=== PATIENT | female | born 1985 | race Hispanic/Latino ===

== ENCOUNTER 2022-02-22 09:49 | Outpatient (CLI) | payer OTHER ==
[2022-02-22 21:17] LABS: SARS-CoV-2 PCR by NAA Not Detected (NotDetected)
== END 2022-02-22 09:50 | disposition home or self-care (01) ==
LOC: CSHLAB 09:49
PROVIDERS: ATTEND Obstetrics & Gynecology
DX: Z20.822 Contact with and (suspected) exposure to COVID-19 (principal)
CPT/HCPCS: U0003; U0005

== ENCOUNTER 2022-02-25 13:07 | Day surgery (SDC) | payer OTHER ==
[2022-02-25] MEDS ORDERED: Acetaminophen 500 MG TAB PO SCH (13:45)
[2022-02-25 13:48] VITALS: BMI 21.6
[2022-02-25] MEDS ORDERED: Iron Sucrose Complex 500 MG in Sodium Chloride 0.9% 250 ML 250 ML IVPB SCH (14:15)
== END 2022-02-25 19:40 | disposition home or self-care (01) ==
LOC: CSHLD/OP 13:07
PROVIDERS: ATTEND Obstetrics & Gynecology
DX: O99.012 Anemia complicating pregnancy, second trimester (principal); D50.9 Iron deficiency anemia, unspecified; O09.522 Supervision of elderly multigravida, second trimester; O09.32 Supervision of pregnancy with insufficient antenatal care, second trimester; Z3A.27 27 weeks gestation of pregnancy
CPT/HCPCS: 96361; 96365; 96366; 99283; J1756; J7050

== ENCOUNTER 2022-05-23 14:30 | Outpatient (CLI) | payer OTHER | END 2022-05-23 14:31 | disposition home or self-care (01) | LOC: CSHLAB 14:30 | PROVIDERS: ATTEND Family Medicine | DX: Z20.822 Contact with and (suspected) exposure to COVID-19 (principal) | CPT/HCPCS: 87811 ==

== ENCOUNTER 2022-05-25 19:00 | Inpatient (IN) | payer OTHER ==
[2022-05-25 22:41] VITALS: BMI 22.8
[2022-05-25] MEDS ORDERED: Promethazine HCl 25 MG/ML VIAL IM PRN (22:56)
[2022-05-25] MEDS ORDERED: Methylergonovine 0.2 MG/ML VIAL IM PRN (22:56)
[2022-05-25] MEDS ORDERED: Ondansetron PF 4 MG/2 ML Vial IVP PRN (22:56)
[2022-05-25] MEDS ORDERED: Misoprostol 200 MCG TAB PR PRN (22:56)
[2022-05-25] MEDS ORDERED: hydrALAZINE 20 MG/ML VIAL SLOW IVP PRN (22:56)
[2022-05-25] MEDS ORDERED: Carboprost 250 MCG/ML AMP IM PRN (22:56)
[2022-05-25] MEDS ORDERED: HYDROcodone/Acetaminophen 5/325 mg Tablet PO PRN ×2 (22:56)
[2022-05-25] MEDS ORDERED: Lidocaine 1% (PF) 30 ML VIAL SC PRN (22:56)
[2022-05-25] MEDS ORDERED: Ibuprofen 800 MG TAB PO PRN (22:56)
[2022-05-25] MEDS ORDERED: Lactated Ringer's 1,000 ML IV SCH (23:00)
[2022-05-25] MEDS ORDERED: NS w/ Oxytocin 30 units 500 ML IV SCH ×2 (23:00)
[2022-05-25 23:10] LABS: Hemoglobin 12.7 g/dL (12.0-15.5); Mean Corpuscular HGB CONC 34.4 g/dL (32.0-36.0); Mean Corpuscular Hemoglobin 29.8 pg (27.0-33.0); Mean Corpuscular Volume 86.6 fl (81.6-98.3); Mean Platelet Volume 10.1 fl (7.4-10.4); Platelet Count 251 10x3/uL (150-450); RBC Distribution Width 13.3 % (11.5-14.5); Red Blood Cell (RBC) Count 4.26 10x6/uL (3.90-5.03); White Blood Cell (WBC) Count 8.8 10x3/uL (3.5-10.5)
[2022-05-25 23:36] LABS: Hep B Surf Ag Non-Reactive S/CO (NonReactive); Syphilis Antibody Nonreactive (Nonreactive); Syphilis Antibody Index 0.03 S/CO (<1.00 Non-Reactive)
[2022-05-25 23:40] LABS: HBSAg Index 0.17 S/CO (0-0.99)
[2022-05-26] MEDS ORDERED: Misoprostol 100 MCG TAB VAG SCH
[2022-05-26] MEDS ORDERED: Fentanyl 2 mcg/Bup 0.1% Cadd 100 ML ONE (07:34)
[2022-05-26] MEDS ORDERED: Moisturizing Cream (Eucerin) 113 GM JAR TOP PRN (07:58)
[2022-05-26] MEDS ORDERED: Naloxone HCl 0.4 mg/ml Vial IVP PRN ×2 (07:58)
[2022-05-26] MEDS ORDERED: diphenhydrAMINE 50 MG/ML VIAL IVP PRN (07:58)
[2022-05-26] MEDS ORDERED: ePHEDrine Sulfate 50 MG/10 ML VIAL SLOW IVP PRN (07:58)
[2022-05-26] MEDS ORDERED: Lactated Ringer's 500 ML IV PRN (07:58)
[2022-05-26] MEDS ORDERED: Acetaminophen 325 MG TAB PO PRN (07:58)
[2022-05-26] MEDS ORDERED: Ondansetron PF 4 MG/2 ML Vial IVP PRN ×2 (07:58→16:48)
[2022-05-26] MEDS ORDERED: Promethazine HCl 25 MG/ML VIAL IM PRN (07:58)
[2022-05-26] MEDS ORDERED: Communication Order-Pharmacy FS SCH (08:00)
[2022-05-26] MEDS ORDERED: Fentanyl 2 mcg/Bupivacaine 0.1% Cassette 100 ML EPIDURAL SCH (08:00)
[2022-05-26] MEDS ORDERED: Milk Of Magnesia 30 ML UDCUP PO PRN (16:48)
[2022-05-26] MEDS ORDERED: Boostrix 0.5 ML (Tdap) VIAL IM ONE (16:48)
[2022-05-26] MEDS ORDERED: hydrALAZINE 20 MG/ML VIAL SLOW IVP PRN (16:48)
[2022-05-26] MEDS ORDERED: Benzocaine-Menthol 82.5 ML CAN TOP PRN (16:48)
[2022-05-26] MEDS ORDERED: Lanolin Ointment 7 GM TUBE TOP PRN (16:48)
[2022-05-26] MEDS ORDERED: Misoprostol 200 MCG TAB VAG PRN (16:48)
[2022-05-26] MEDS ORDERED: Preparation H Ointment 28 GM TUBE PR PRN (16:48)
[2022-05-26] MEDS ORDERED: Bisacodyl 10 MG SUPP PR PRN (16:48)
[2022-05-26] MEDS: Ferrous Sulfate 325 MG TAB PO SCH (17:20)
[2022-05-26] MEDS: Docusate 100 MG CAP PO SCH (22:15)
[2022-05-26] MEDS: Ibuprofen 800 MG TAB PO SCH (22:15)
[2022-05-27] MEDS: Ibuprofen 800 MG TAB PO SCH ×2 (06:22→14:46)
[2022-05-27] MEDS: Ferrous Sulfate 325 MG TAB PO SCH (07:21)
[2022-05-27] MEDS ORDERED: Prenatal Vitamin 1 TAB PO SCH ×3 (09:00)
[2022-05-27] MEDS: Docusate 100 MG CAP PO SCH (09:38)
[2022-05-27 11:59] VITALS: BP 90/56; TEMP 98.4
== END 2022-05-27 17:10 | disposition home or self-care (01) | DRG 807 ==
LOC: CSHLD 21:19 → CSHPP 05-26 16:50
PROVIDERS: ADMIT Family Medicine; ATTEND Family Medicine
PROC: 3E0P7VZ Introduction of Hormone into Female Reproductive, Via Natural or Artificial Opening (ICD-10-PCS; 2022-05-25)
PROC: 10E0XZZ Delivery of Products of Conception, External Approach (ICD-10-PCS; principal; 2022-05-26)
PROC: 3E033VJ Introduction of Other Hormone into Peripheral Vein, Percutaneous Approach (ICD-10-PCS; 2022-05-26)
PROC: 0HQ9XZZ Repair Perineum Skin, External Approach (ICD-10-PCS; 2022-05-26)
PROC: 10907ZC Drainage of Amniotic Fluid, Therapeutic from Products of Conception, Via Natural or Artificial Opening (ICD-10-PCS; 2022-05-26)
DX: O99.02 Anemia complicating childbirth (principal); Z37.0 Single live birth; O70.0 First degree perineal laceration during delivery; Z3A.40 40 weeks gestation of pregnancy; Z20.822 Contact with and (suspected) exposure to COVID-19; D64.9 Anemia, unspecified; O76 Abnormality in fetal heart rate and rhythm complicating labor and delivery
CPT/HCPCS: 85027; 86780; 86850; 86900; 86901; 87340; J2590